=== PATIENT | female | born 1960 | race Caucasian/White ===

== ENCOUNTER 2016-09-20 08:53 | Emergency (ER) | payer SELFPAY ==
[2016-09-20 08:09] LABS: BASOPHILS 0.3 %; BASOPHILS ABSOLUTE 0.03 10/3/uL (0.0-0.16); EOSINOPHILS 1.1 %; EOSINOPHILS ABSOLUTE 0.11 10/3/uL (0.0-0.53); ER CBC TAT 0 Hrs 08 Mins; HEMATOCRIT 34.4 % (36.0-48.0); HEMOGLOBIN 11.4 g/dL (12.0-16.0); IMMATURE GRANULOCYTES 0.2 %; IMMATURE GRANULOCYTES ABSOLUTE 0.02 10/3/uL (0.0-0.11); LYMPHOCYTES 17.4 %; LYMPHOCYTES ABSOLUTE 1.73 10/3/uL (0.67-4.30); MANUAL DIFF NO %; MEAN CORPUS HGB CONC 33.1 g/dL (32.0-36.0); MEAN CORPUSCULAR HEMOGLOB 30.4 pg (26.0-34.0); MEAN CORPUSCULAR VOLUME 91.7 fL (80-100); MEAN PLATELET VOLUME 9.5 fL (9.2-13.0); MONOCYTES 5.8 %; MONOCYTES ABSOLUTE 0.58 10/3/uL (0.21-1.20); NEUTROPHILS 75.2 %; NEUTROPHILS ABSOLUTE 7.47 10/3/uL (2.02-8.40); PLATELET COUNT 352 10/3/uL (150-400); RBC DISTRIBUTION WIDTH 13.2 % (12.0-16.0); RED CELL COUNT 3.75 10/6/uL (4.0-5.6); WHITE BLOOD CELLS 9.9 10/3/uL (4.5-10.5)
[2016-09-20 08:13] LABS: INTERNATIONAL NORMAL RATI 1.1 UNITS (-); PARTIAL THROMBO TIME 26.9 SEC (22.5-37.2); PROTIME (NOT ORD) 13.9 SEC (12.0-14.5)
[2016-09-20 08:23] LABS: BUN (BLOOD UREA NITROGEN) 11 MG/DL (6-23); CALCIUM, SERUM 8.6 MG/DL (8.5-10.4); CHEST PAIN PROFILE TAT 0 Hrs 22 Mins; CHLORIDE, SERUM 108 MMOL/L (96-112); CO2 (CARBON DIOXIDE) 25 MMOL/L (24-34); CREATININE 0.75 MG/DL (0.55-1.02); GFR AFRICAN AMERICAN 105 ML/MIN (>=60); GFR NON AFRICAN AMERICAN 91 ML/MIN (>=60); GLUCOSE, SERUM 126 MG/DL (60-99); POTASSIUM, SERUM 3.5 MMOL/L (3.5-5.3); SODIUM, SERUM 144 MMOL/L (135-148); TROPONIN I 0.04 NG/ML (<0.05)
[2016-09-20 08:43] LABS: INFLUENZA A SCREEN NEGATIVE (NEGATIVE); INFLUENZA B SCREEN NEGATIVE (NEGATIVE)
[2016-09-20 08:56] LABS: ALLENS TEST Pos; BE (BASE EXCESS) 1.9 MEQ/L (0 +/- 2.5); CARBOXYHEMOGLOBIN 1.1 % (0-3); HCO3 (ACTUAL BICARBONATE) 25.5 MEQ/L (23-27); HEMOBLOGIN CONTENT 11.8 G/DL (12-16); INSTRUMENT SERIAL # 8087; METHEMOGLOBIN 0.3 % (0-3); O2 CONTENT 15.5 VOL% (18-24); OPERATOR ID 14947; PCO2 (CO2 TENSION) 36 MMHG (35-45); PO2 (O2 TENSION) 70 MMHG (79-93); SAMPLE Arterial; pH 7.46 (7.37-7.43)
== END 2016-09-20 09:40 | disposition home or self-care (01) ==
LOC: ER 08:53
PROVIDERS: Hospitalist
DX: J44.1 Chronic obstructive pulmonary disease with (acute) exacerbation (principal); F17.200 Nicotine dependence, unspecified, uncomplicated; I25.2 Old myocardial infarction; Z98.61 Coronary angioplasty status; Z88.2 Allergy status to sulfonamides
CPT/HCPCS: 71010; 80048; 82805; 83735; 84484; 85025; 85610; 85730; 87804; 93005; 94640; 96374; 99285; J2930

== ENCOUNTER 2016-11-15 18:09 | Inpatient (IN) | payer SELFPAY ==
--- NOTE | ~2016-11-15 | DS ---
Discharge Summary [id number] [place]. [address] NAME: RENAE YANEZ : 64 STATUS : DIS IN PAT#: [id number] AGE: 56 ADM/REG DATE : 11/15/16 MR#: [id number] REPORT SERV DATE: 11/30/16 DICTATED BY: RYAN MADISON DATE: 11/29/16 REPORT STATUS : Draft TRANSCRIBED BY: EDMOND DATE: 11/29/16 ADMISSION DATE: 11/15/2016 DISCHARGE DATE: 11/17/2016 HISTORY OF PRESENT ILLNESS: A 56-year-old female presented with progressive shortness of breath. Please see initial H and P of Dr. Chip Meza as the patient was admitted to the Hospitalist Service with new onset heart failure. He was initiated on some diuresis therapy, JAH inhibitor, beta ela. An echocardiogram was ordered. The patient also showed positive for methamphetamine upon admission. PROCEDURES AND IMAGING DURING THIS ADMISSION: Include the echocardiogram showing an ejection fraction between 15% and 20%, mild to moderate left pleural effusion and mild on the right pleural effusion, mild pericardial effusion, global hypokinesia. CONTINUATION OF HOSPITAL COURSE: The patient was admitted on 11/15/2016. I saw the patient on 11/16/2016. She was feeling quite anxious, still short of breath but had improved with the diuresis. She was afebrile. Blood pressures were mildly elevated. Lab work was within normal limits with the exception of BNPs elevated 2825 and 2736. After discussion with the patient at length at the bedside she at first demanded to be to leave AMA. I discussed with the patient at this time to get echocardiogram and further treatment as they felt that she was high risk for readmission. She finally relented to stay to get the echocardiogram performed. She also refused psychiatry consult and refused her nicotine patch during this admission as well. She did leave against medical advice on the enzyme chemist hours of 11/17/2016 at approximately 1:13 a.m. GENARO/EDMOND Ryan Madison NP / [id number] CC: Thom Stanley M.D.
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
[2016-11-15 16:15] LABS: BASOPHILS 0.2 %; BASOPHILS ABSOLUTE 0.03 10/3/uL (0.0-0.16); EOSINOPHILS ABSOLUTE 0.13 10/3/uL (0.0-0.53); HEMATOCRIT 35.9 % (36.0-48.0); HEMOGLOBIN 11.4 g/dL (12.0-16.0); IMMATURE GRANULOCYTES 0.3 %; IMMATURE GRANULOCYTES ABSOLUTE 0.04 10/3/uL (0.0-0.11); LYMPHOCYTES 18.1 %; LYMPHOCYTES ABSOLUTE 2.33 10/3/uL (0.67-4.30); MEAN CORPUS HGB CONC 31.8 g/dL (32.0-36.0); MEAN CORPUSCULAR HEMOGLOB 29.1 pg (26.0-34.0); MEAN CORPUSCULAR VOLUME 91.6 fL (80-100); MEAN PLATELET VOLUME 9.4 fL (9.2-13.0); MONOCYTES 6.7 %; MONOCYTES ABSOLUTE 0.86 10/3/uL (0.21-1.20); NEUTROPHILS 73.7 %; PLATELET COUNT 308 10/3/uL (150-400); RBC DISTRIBUTION WIDTH 14.5 % (12.0-16.0); RED CELL COUNT 3.92 10/6/uL (4.0-5.6); WHITE BLOOD CELLS 12.9 10/3/uL (4.5-10.5)
[2016-11-15 16:16] LABS: MANUAL DIFF NO %
[2016-11-15 16:22] LABS: INTERNATIONAL NORMAL RATI 1.3 UNITS (-); PARTIAL THROMBO TIME 26.3 SEC (22.5-37.2); PROTIME (NOT ORD) 15.8 SEC (12.0-14.5)
[2016-11-15 16:30] LABS: BUN (BLOOD UREA NITROGEN) 17 MG/DL (6-23); CALCIUM, SERUM 8.4 MG/DL (8.5-10.4); CHEST PAIN PROFILE TAT 0 Hrs 21 Mins; CHLORIDE, SERUM 108 MMOL/L (96-112); CO2 (CARBON DIOXIDE) 28 MMOL/L (24-34); CREATININE 0.85 MG/DL (0.55-1.02); GFR AFRICAN AMERICAN 90 ML/MIN (>=60); GFR NON AFRICAN AMERICAN 78 ML/MIN (>=60); GLUCOSE, SERUM 160 MG/DL (60-99); POTASSIUM, SERUM 3.7 MMOL/L (3.5-5.3); SODIUM, SERUM 143 MMOL/L (135-148); TROPONIN I 0.05 NG/ML (<0.05)
[2016-11-15 17:07] LABS: ALLENS TEST Pos; BE (BASE EXCESS) -1.8 MEQ/L (0 +/- 2.5); HCO3 (ACTUAL BICARBONATE) 20.7 MEQ/L (23-27); HEMOBLOGIN CONTENT 11.7 G/DL (12-16); INSTRUMENT SERIAL # 8087; METHEMOGLOBIN 0.3 % (0-3); O2 CONTENT 15.9 VOL% (18-24); PCO2 (CO2 TENSION) 29 MMHG (35-45); PO2 (O2 TENSION) 90 MMHG (79-93); SAMPLE Arterial; pH 7.48 (7.37-7.43)
[2016-11-15 18:30] LABS: AMPHETAMINES (NOT ORD) POS (NEG); BARBITURATES (NOT ORDERED NEG (NEG); BENZODIAZEPINES (NOT ORD) NEG (NEG); CANNABINOIDS (THC) NEG (NEG); COCAINE (NOT ORDERED) NEG (NEG); OPIATES NEG (NEG); PHENCYCLIDINE(PCP) NEG (NEG); TRICYCLICS NEG (NEG)
[2016-11-15] MEDS ORDERED: PROAIR HFA INH (19:43)
[2016-11-15] MEDS ORDERED: QVAR80 MCG INH (19:45)
[2016-11-15] MEDS ORDERED: ALBUTEROL0.083 % INH (19:45)
[2016-11-15] MEDS ORDERED: XANAX PO (19:46)
[2016-11-15] MEDS ORDERED: BEN25 PO (19:47)
[2016-11-15] MEDS ORDERED: [UNRECOGNIZED DRUG - OTHER] PO (19:47)
[2016-11-16 06:32] LABS: INTERNATIONAL NORMAL RATI 1.2 UNITS (-); PROTIME (NOT ORD) 15.3 SEC (12.0-14.5)
[2016-11-16 06:33] LABS: PARTIAL THROMBO TIME 26.5 SEC (22.5-37.2)
[2016-11-16 06:36] LABS: BASOPHILS 0.1 %; BASOPHILS ABSOLUTE 0.01 10/3/uL (0.0-0.16); EOSINOPHILS 0 %; HEMATOCRIT 35.1 % (36.0-48.0); HEMOGLOBIN 11.2 g/dL (12.0-16.0); IMMATURE GRANULOCYTES 0.2 %; IMMATURE GRANULOCYTES ABSOLUTE 0.02 10/3/uL (0.0-0.11); LYMPHOCYTES 9.1 %; LYMPHOCYTES ABSOLUTE 0.89 10/3/uL (0.67-4.30); MANUAL DIFF NO %; MEAN CORPUS HGB CONC 31.9 g/dL (32.0-36.0); MEAN CORPUSCULAR VOLUME 90.9 fL (80-100); MEAN PLATELET VOLUME 9.9 fL (9.2-13.0); MONOCYTES 2.1 %; MONOCYTES ABSOLUTE 0.21 10/3/uL (0.21-1.20); NEUTROPHILS 88.5 %; NEUTROPHILS ABSOLUTE 8.69 10/3/uL (2.02-8.40); PLATELET COUNT 297 10/3/uL (150-400); RBC DISTRIBUTION WIDTH 14.5 % (12.0-16.0); RED CELL COUNT 3.86 10/6/uL (4.0-5.6); WHITE BLOOD CELLS 9.8 10/3/uL (4.5-10.5)
[2016-11-16 06:53] LABS: A/G RATIO 0.8 (0.7-1.9); ALKALINE PHOSPHATASE 125 U/L (45-117); CALCIUM, SERUM 8.7 MG/DL (8.5-10.4); CHLORIDE, SERUM 107 MMOL/L (96-112); CO2 (CARBON DIOXIDE) 25 MMOL/L (24-34); CPK 72 U/L (0-200); CREATININE 0.83 MG/DL (0.55-1.02); GFR AFRICAN AMERICAN 93 ML/MIN (>=60); GFR NON AFRICAN AMERICAN 80 ML/MIN (>=60); GLOBULIN 3.6 G/DL (2.5-4.1); GLUCOSE, SERUM 142 MG/DL (60-99); POTASSIUM, SERUM 3.7 MMOL/L (3.5-5.3); SGOT(AST) 23 U/L (5-40); SGPT(ALT) 36 U/L (5-65); SODIUM, SERUM 144 MMOL/L (135-148); TOTAL BILIRUBIN 0.5 MG/DL (0-1.2); TOTAL PROTEIN 6.6 G/DL (6.0-8.5); TROPONIN I 0.03 NG/ML (<0.05); ULTRASENSITIVE TSH 0.723 MCIU/ML (0.358-3.740)
[2016-11-16 06:57] LABS: BUN (BLOOD UREA NITROGEN) 22 MG/DL (6-23); CK-MB 2.1 NG/ML
[2016-11-17 04:47] LABS: BASOPHILS 0.1 %; BASOPHILS ABSOLUTE 0.01 10/3/uL (0.0-0.16); EOSINOPHILS 0 %; HEMATOCRIT 34.9 % (36.0-48.0); HEMOGLOBIN 10.9 g/dL (12.0-16.0); IMMATURE GRANULOCYTES 0.2 %; IMMATURE GRANULOCYTES ABSOLUTE 0.03 10/3/uL (0.0-0.11); LYMPHOCYTES 6.5 %; LYMPHOCYTES ABSOLUTE 1.03 10/3/uL (0.67-4.30); MEAN CORPUS HGB CONC 31.2 g/dL (32.0-36.0); MEAN CORPUSCULAR HEMOGLOB 28.5 pg (26.0-34.0); MEAN CORPUSCULAR VOLUME 91.4 fL (80-100); MEAN PLATELET VOLUME 10.4 fL (9.2-13.0); MONOCYTES 4.1 %; MONOCYTES ABSOLUTE 0.65 10/3/uL (0.21-1.20); NEUTROPHILS 89.1 %; PLATELET COUNT 309 10/3/uL (150-400); RBC DISTRIBUTION WIDTH 14.6 % (12.0-16.0); RED CELL COUNT 3.82 10/6/uL (4.0-5.6)
[2016-11-17 04:52] LABS: MANUAL DIFF NO %; WHITE BLOOD CELLS 15.9 10/3/uL (4.5-10.5)
[2016-11-17 04:59] LABS: CALCIUM, SERUM 8.9 MG/DL (8.5-10.4); CHLORIDE, SERUM 106 MMOL/L (96-112); CO2 (CARBON DIOXIDE) 27 MMOL/L (24-34); CREATININE 0.88 MG/DL (0.55-1.02); GFR AFRICAN AMERICAN 86 ML/MIN (>=60); GFR NON AFRICAN AMERICAN 74 ML/MIN (>=60); GLUCOSE, SERUM 125 MG/DL (60-99); POTASSIUM, SERUM 3.7 MMOL/L (3.5-5.3); SODIUM, SERUM 144 MMOL/L (135-148)
[2016-11-17 05:00] LABS: BUN (BLOOD UREA NITROGEN) 29 MG/DL (6-23)
== END 2016-11-17 06:28 | disposition left against medical advice (07) | DRG 292 ==
LOC: ER 18:09 → 6NO 19:53
PROVIDERS: Emergency Medicine; Hospitalist; Nurse Practitioner Family
DX: I50.9 Heart failure, unspecified (principal); J44.1 Chronic obstructive pulmonary disease with (acute) exacerbation; F15.10 Other stimulant abuse, uncomplicated; F41.9 Anxiety disorder, unspecified; F17.210 Nicotine dependence, cigarettes, uncomplicated
CPT/HCPCS: 36600; 71010; 71020; 71275; 80048; 80053; 80305; 82550; 82553; 82805; 83735; 83880; 84443; 84484; 85025; 85610; 85730; 93005; 93306; 94640; 96374; 99285; A9270-GY; J2920; J2930; Q9967

== ENCOUNTER 2016-12-17 22:41 | Observation (INO) | payer SELFPAY ==
--- NOTE | ~2016-12-17 | DS ---
Discharge Summary [facility] [address] [place]. [address] NAME: RENAE YANEZ : 64 STATUS : DIS [facility] PAT#: [id number] AGE: 56 ADM/REG DATE : 12/17/16 MR#: [id number] REPORT SERV DATE: 12/20/16 DICTATED BY: MICHELE SNYDER DATE: 12/19/16 REPORT STATUS : Draft TRANSCRIBED BY: MODL DATE: 12/19/16 ADMISSION DATE: 12/17/2016 DISCHARGE DATE: 12/19/2016 CONDITION ON DISCHARGE: Stable. DISPOSITION: Discharged to home. DIAGNOSES ON DISCHARGE: 1. Acute exacerbation of systolic and diastolic heart failure, which has improved. 2. Chronic systolic and diastolic heart failure and cardiomyopathy with an ejection fraction of around 20%. 3. Chronic obstructive pulmonary disease. 4. Coronary artery disease, which is stable, history of stent placement for coronary artery disease. 5. Hypertension, which is stable. 6. Tobacco, use which is ongoing. 7. Methamphetamine use which is ongoing and it was said that the patient is homeless upon admission, but the patient states that she does have a place to live, and it is our own home even though it is not the ideal conditions to live in, and wishes to go back there at this time. BRIEF HOSPITAL COURSE: Please refer to Dr. Gilbert Ny's history and physical exam. The patient was admitted with shortness of breath and acute exacerbation of congestive heart failure/COPD on 12/17/2016. The patient was started on IV diuresis, supplemental oxygen, and breathing treatments with DuoNeb, inhaled corticosteroids, and supportive and symptomatic care. With diuresis and supportive care, the patient's symptoms almost completely resolved and the patient's shortness of breath is back at baseline. She insists that she goes home today. As she has improved and clinically she is doing well ambulating, without requiring any oxygen, and is eating well, she is being discharged to home with advice to stop smoking and stop methamphetamine use. DISCHARGE MEDICATIONS: We have did johann her medicines for up to a month and I will be sending her home on the following medications. Doxycycline 100 mg p.o. b.i.d. for 10 days, aspirin 81 mg once a day, Lipitor 40 mg once a day, Lasix 40 mg one p.o. b.i.d., Prinivil 5 mg once a day, potassium chloride 10 mEq once a day, prednisone tapering 30 mg a day for three days, 20 mg a day for three days, 10 mg a day for three days, and then stop. Again patient has been advised to stop smoking and methamphetamine use. The most recent lab profile that I have on this patient shows that her CBC shows a WBC count of 18.3, hemoglobin 11.8, hematocrit of 37.1, and platelet count of 290. This leukocytosis is most likely secondary to methylprednisolone or IV Solu-Medrol that she received while in the hospital, I doubt any other cause for this, even if the patient has acute bronchitis, the doxycycline for 10 days should take care of that. The patient otherwise clinically does not look septic at all. Discharge Summary [address] [place]. [address] NAME: RENAE YANEZ : 64 STATUS : DIS [place] PAT#: [id number] AGE: 56 ADM/REG DATE : 12/17/16 MR#: [id number] REPORT SERV DATE: 12/20/16 DICTATED BY: MICHELE SNYDER DATE: 12/19/16 REPORT STATUS : Draft TRANSCRIBED BY: EDMOND DATE: 12/19/16 The patient also had an electrolyte profile that shows completely normal electrolytes, BUN, and creatinine. Her brain natriuretic peptide is chronically elevated and is 1725.9 on the day of discharge. This is much better from 2076 which patient had upon the day of admission. As the patient does report history of unprotected sex. Her hepatitis profile was checked and the patient is nonreactive for hepatitis B or hepatitis C. HIV status was also checked and HIV came back nonreactive. HCG came back negative for at this time. Even though there was an initial false-positive on the HCG. We repeated her serum qualitative HCG and this came back negative for . The patient also states that she is 56 years old and has been through menopause for more than five years now and is impossible that she could be which I agree. Again, the patient is being sent home with advice to stop methamphetamine use, and stop tobacco use, and also have advised the risks of all the above including that if she continues to practice the wishes practicing right now. I have spent about 40 minutes in coordinating discharge care of this patient including face- to-face encounter and summarizing this discharge. EUNICE/EDMOND Michele Snyder M.D. / [id number] CC: Michele Snyder M.D.
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
[~2016-12-17 22:41] MED LIST: ALBUTEROL0.083 % INH; BEN25 PO; PROAIR HFA INH; QVAR80 MCG INH; XANAX PO; [UNRECOGNIZED DRUG - OTHER] PO
[2016-12-17 23:53] LABS: BASOPHILS 0.4 %; BASOPHILS ABSOLUTE 0.04 10/3/uL (0.0-0.16); EOSINOPHILS 0 %; HEMATOCRIT 32.7 % (36.0-48.0); HEMOGLOBIN 10.7 g/dL (12.0-16.0); IMMATURE GRANULOCYTES 0.2 %; IMMATURE GRANULOCYTES ABSOLUTE 0.02 10/3/uL (0.0-0.11); LYMPHOCYTES 24.1 %; LYMPHOCYTES ABSOLUTE 2.52 10/3/uL (0.67-4.30); MEAN CORPUS HGB CONC 32.7 g/dL (32.0-36.0); MEAN CORPUSCULAR HEMOGLOB 28.2 pg (26.0-34.0); MEAN PLATELET VOLUME 9.4 fL (9.2-13.0); MONOCYTES 10.1 %; MONOCYTES ABSOLUTE 1.06 10/3/uL (0.21-1.20); NEUTROPHILS 65.2 %; NEUTROPHILS ABSOLUTE 6.83 10/3/uL (2.02-8.40); PLATELET COUNT 242 10/3/uL (150-400); RED CELL COUNT 3.79 10/6/uL (4.0-5.6); WHITE BLOOD CELLS 10.5 10/3/uL (4.5-10.5)
[2016-12-17 23:54] LABS: MANUAL DIFF NO %; MEAN CORPUSCULAR VOLUME 86.3 fL (80-100)
[2016-12-18 00:01] LABS: INTERNATIONAL NORMAL RATI 1.5 UNITS (-); PARTIAL THROMBO TIME 28.8 SEC (22.5-37.2)
[2016-12-18 00:04] LABS: PROTIME (NOT ORD) 18.2 SEC (12.0-14.5)
[2016-12-18 00:10] LABS: CALCIUM, SERUM 8.2 MG/DL (8.5-10.4); CHEST PAIN PROFILE TAT 0 Hrs 21 Mins; CHLORIDE, SERUM 105 MMOL/L (96-112); CO2 (CARBON DIOXIDE) 25 MMOL/L (24-34); CREATININE 0.88 MG/DL (0.55-1.02); GFR AFRICAN AMERICAN 86 ML/MIN (>=60); GFR NON AFRICAN AMERICAN 74 ML/MIN (>=60); POTASSIUM, SERUM 3.7 MMOL/L (3.5-5.3); SODIUM, SERUM 141 MMOL/L (135-148); TROPONIN I <0.02 NG/ML (<0.05)
[2016-12-18 00:11] LABS: BUN (BLOOD UREA NITROGEN) 12 MG/DL (6-23); GLUCOSE, SERUM 95 MG/DL (60-99)
[2016-12-18 06:30] LABS: BASOPHILS 0.3 %; BASOPHILS ABSOLUTE 0.03 10/3/uL (0.0-0.16); EOSINOPHILS 0.3 %; EOSINOPHILS ABSOLUTE 0.03 10/3/uL (0.0-0.53); HEMATOCRIT 33.2 % (36.0-48.0); HEMOGLOBIN 10.7 g/dL (12.0-16.0); IMMATURE GRANULOCYTES 0.1 %; IMMATURE GRANULOCYTES ABSOLUTE 0.01 10/3/uL (0.0-0.11); LYMPHOCYTES 19.2 %; MEAN CORPUS HGB CONC 32.2 g/dL (32.0-36.0); MEAN CORPUSCULAR HEMOGLOB 27.8 pg (26.0-34.0); MEAN CORPUSCULAR VOLUME 86.2 fL (80-100); MEAN PLATELET VOLUME 9.7 fL (9.2-13.0); MONOCYTES 9.1 %; MONOCYTES ABSOLUTE 0.85 10/3/uL (0.21-1.20); NEUTROPHILS ABSOLUTE 6.65 10/3/uL (2.02-8.40); PLATELET COUNT 247 10/3/uL (150-400); RBC DISTRIBUTION WIDTH 15.1 % (12.0-16.0); RED CELL COUNT 3.85 10/6/uL (4.0-5.6); WHITE BLOOD CELLS 9.4 10/3/uL (4.5-10.5)
[2016-12-18 06:31] LABS: MANUAL DIFF NO %
[2016-12-18 06:53] LABS: A/G RATIO 0.9 (0.7-1.9); ALBUMIN 2.7 G/DL (3.5-5.0); BUN (BLOOD UREA NITROGEN) 14 MG/DL (6-23); CALCIUM, SERUM 8.1 MG/DL (8.5-10.4); CHLORIDE, SERUM 107 MMOL/L (96-112); CO2 (CARBON DIOXIDE) 25 MMOL/L (24-34); CREATININE 0.94 MG/DL (0.55-1.02); GFR AFRICAN AMERICAN 80 ML/MIN (>=60); GFR NON AFRICAN AMERICAN 69 ML/MIN (>=60); GLOBULIN 3.1 G/DL (2.5-4.1); GLUCOSE, SERUM 147 MG/DL (60-99); POTASSIUM, SERUM 3.6 MMOL/L (3.5-5.3); SGPT(ALT) 23 U/L (5-65); SODIUM, SERUM 144 MMOL/L (135-148); TOTAL BILIRUBIN 1.1 MG/DL (0-1.2); TOTAL PROTEIN 5.8 G/DL (6.0-8.5)
[2016-12-18 06:54] LABS: ALKALINE PHOSPHATASE 112 U/L (45-117); SGOT(AST) 31 U/L (5-40); TROPONIN I 0.05 NG/ML (<0.05)
[2016-12-18 09:12] LABS: ASCORBIC ACID (UR NOT ORDER) NEG (NEG); BILIRUBIN, URINE NEGATIVE (NEG); KETONE, URINE NEGATIVE (NEG); LEUKOCYTE ESTERASE(NOT OR NEG (NEG); WBC (NOT ORDERED) (RFLEX) 1 (0-5)
[2016-12-18 09:47] LABS: AMPHETAMINES (NOT ORD) POS (NEG); BARBITURATES (NOT ORDERED NEG (NEG); BENZODIAZEPINES (NOT ORD) NEG (NEG); CANNABINOIDS (THC) NEG (NEG); COCAINE (NOT ORDERED) NEG (NEG); OPIATES NEG (NEG); PHENCYCLIDINE(PCP) NEG (NEG); TRICYCLICS NEG (NEG)
[2016-12-18 13:45] LABS: CHLAMYDIA TRACH PCR NOT DETECTED (NOT DETEC)
[2016-12-19 05:35] LABS: BASOPHILS 0.1 %; BASOPHILS ABSOLUTE 0.01 10/3/uL (0.0-0.16); EOSINOPHILS 0 %; HEMOGLOBIN 11.8 g/dL (12.0-16.0); IMMATURE GRANULOCYTES 0.4 %; IMMATURE GRANULOCYTES ABSOLUTE 0.07 10/3/uL (0.0-0.11); LYMPHOCYTES 8.6 %; LYMPHOCYTES ABSOLUTE 1.57 10/3/uL (0.67-4.30); MEAN CORPUS HGB CONC 31.8 g/dL (32.0-36.0); MEAN CORPUSCULAR HEMOGLOB 27.8 pg (26.0-34.0); MEAN CORPUSCULAR VOLUME 87.5 fL (80-100); MEAN PLATELET VOLUME 10.1 fL (9.2-13.0); MONOCYTES 7.9 %; MONOCYTES ABSOLUTE 1.44 10/3/uL (0.21-1.20); NEUTROPHILS ABSOLUTE 15.18 10/3/uL (2.02-8.40); PLATELET COUNT 290 10/3/uL (150-400); RBC DISTRIBUTION WIDTH 15.1 % (12.0-16.0); RED CELL COUNT 4.24 10/6/uL (4.0-5.6)
[2016-12-19 05:41] LABS: HEMATOCRIT 37.1 % (36.0-48.0); MANUAL DIFF NO %; WHITE BLOOD CELLS 18.3 10/3/uL (4.5-10.5)
[2016-12-19 05:53] LABS: CALCIUM, SERUM 8.7 MG/DL (8.5-10.4); CHLORIDE, SERUM 102 MMOL/L (96-112); CREATININE 0.81 MG/DL (0.55-1.02); GFR AFRICAN AMERICAN 95 ML/MIN (>=60); GFR NON AFRICAN AMERICAN 82 ML/MIN (>=60); POTASSIUM, SERUM 3.9 MMOL/L (3.5-5.3); SODIUM, SERUM 144 MMOL/L (135-148)
[2016-12-19 05:54] LABS: BUN (BLOOD UREA NITROGEN) 21 MG/DL (6-23); CO2 (CARBON DIOXIDE) 32 MMOL/L (24-34); GLUCOSE, SERUM 116 MG/DL (60-99)
[2016-12-19 08:53] LABS: HEPATITIS B SURFACE ANTIGEN NON-REACTIVE (NON-REACT)
[2016-12-19 09:11] LABS: HEPATITIS C ANTIBODY NON-REACTIVE (NON-REACT)
[2016-12-19 09:12] LABS: HEPATITIS B CORE AB IGM NON-REACTIVE (NON-REAC)
[2016-12-19 09:13] LABS: HEP A ANTIBODY IGM NON-REACTIVE (NON-REACT); HIV COMBO NON-REACTIVE (NON REAC)
[2016-12-19] MEDS ORDERED: LIPITOR40 PO (10:11)
[2016-12-19] MEDS ORDERED: ASAB PO (10:11)
[2016-12-19] MEDS ORDERED: L40 (10:12)
[2016-12-19] MEDS ORDERED: KLOR-CON 1010 MEQ (10:13)
[2016-12-19] MEDS ORDERED: PRIN5 PO (10:13)
[2016-12-19] MEDS ORDERED: DORYX100 MG PO (10:14)
[2016-12-19] MEDS ORDERED: P20 (10:15)
[2016-12-19] MEDS ORDERED: P20 PO (10:16)
[2016-12-19] MEDS ORDERED: P10 PO (10:17)
== END 2016-12-19 11:55 | disposition home or self-care (01) ==
LOC: ER 22:41 → 7NO 23:59
PROVIDERS: Emergency Medicine; Hospitalist; Student in an Organized Health Care Education/Training Program
DX: I11.0 Hypertensive heart disease with heart failure (principal); I50.42 Chronic combined systolic (congestive) and diastolic (congestive) heart failure; I25.10 Atherosclerotic heart disease of native coronary artery without angina pectoris; I50.9 Heart failure, unspecified; J45.909 Unspecified asthma, uncomplicated; I42.9 Cardiomyopathy, unspecified; F41.9 Anxiety disorder, unspecified; F32.9 Major depressive disorder, single episode, unspecified; J44.9 Chronic obstructive pulmonary disease, unspecified; Z87.891 Personal history of nicotine dependence; Z88.2 Allergy status to sulfonamides
CPT/HCPCS: 71020; 80048; 80053; 80074; 80305; 81001; 83735; 83880; 84443; 84484; 84703; 85025; 85610; 85730; 86592; 87389; 87449; 87491; 93005; 96372; 96374; 96375; 96376; 99285; A9270-GY; G0378; J2920; J2930